=== PATIENT | male | born 1955 | race Caucasian/White ===

== ENCOUNTER → 2016-05-12 | Outpatient (CLI) | payer OTHER ==
[~2016-05-12] MED LIST: LISINOPRIL5 MG PO; PAXIL20 M1 PO
[2016-05-12 15:00] LABS: CHOLESTEROL 149 mg/dL (<200); HDL CHOLESTEROL 50 mg/dl (40-60); LDL CHOLESTEROL 86 mg/dL (9-159); TRIGLYCERIDES 64 mg/dl (<150); VLDL CHOLESTEROL 13 mg/dL (6-40)
[2016-05-13 07:08] LABS: PROSTATE SPECIFIC AG FREE 0.72 ng/mL
[2016-05-13 22:06] LABS: TESTOSTERONE FREE, (DIRECT) 7.6 pg/mL (6.6-18.1)
== END | disposition home or self-care (01) ==
LOC: LAB 14:01
PROVIDERS: Internal Medicine
DX: E78.2 Mixed hyperlipidemia (principal); N52.2 Drug-induced erectile dysfunction

== ENCOUNTER 2024-10-14 11:59 | Emergency (ER) | payer MEDICARE ==
[~2024-10-14] VITALS: Ht 177.8 cm; Wt 63.5 kg
[2024-10-14 12:08] VITALS: BP 162/82
[2024-10-14] MEDS ORDERED: DOXYCYCLINE HY100 M3 PO (12:09)
[2024-10-14] MEDS ORDERED: PAROXETINE HCL10 MG PO (12:09)
[2024-10-14] MEDS ORDERED: Tdap Vaccine 0.5 ML SYR (Adult Vaccine) IM ONE (12:15)
[2024-10-14] MEDS ORDERED: Lidocaine Hydrochloride 2% 10 ML AMP SC ONE ×2 (12:15→13:00)
[2024-10-14] MEDS ORDERED: Bacitracin Zinc 14 GM TUBE T ONE (14:30)
== END 2024-10-14 15:04 | disposition home or self-care (01) ==
LOC: ED 11:59
DX: S61.211A Laceration without foreign body of left index finger without damage to nail, initial encounter (principal); S61.213A Laceration without foreign body of left middle finger without damage to nail, initial encounter; Z88.5 Allergy status to narcotic agent; Z91.018 Allergy to other foods; Z79.899 Other long term (current) drug therapy; Z98.890 Other specified postprocedural states; X58.XXXA Exposure to other specified factors, initial encounter; Y93.89 Activity, other specified; Y92.89 Other specified places as the place of occurrence of the external cause; Y99.8 Other external cause status